=== PATIENT | male | born 2000 | race Hispanic/Latino ===

== ENCOUNTER 2022-03-08 17:58 | Emergency (ER) | payer OTHER ==
[~2022-03-08] VITALS: Ht 167.6 cm; Wt 63.0 kg
[2022-03-08 18:14] VITALS: BP 132/77
[2022-03-08 18:31] VITALS: BP 128/72
[2022-03-08] MEDS ORDERED: METHOCARBAMOL500 MG PO (19:43)
[2022-03-08] MEDS ORDERED: NAPROXEN500 MG PO (19:43)
[2022-03-08 19:54] VITALS: BP 128/72
== END 2022-03-08 20:03 | disposition home or self-care (01) | DRG 552 ==
LOC: ED 17:58
DX: S16.1XXA Strain of muscle, fascia and tendon at neck level, initial encounter (principal); V43.52XA Car driver injured in collision with other type car in traffic accident, initial encounter